=== PATIENT | male | born 1930 | race Caucasian/White ===

== ENCOUNTER 2019-05-19 | Emergency (ER) | payer MEDICARE ==
[2019-05-20 00:09] LABS: HEMOGLOBIN 13.6 g/dl (14.0-18.0); IMMATURE GRANULOCYTES 0.3 % (0.0-5.0); MEAN CELL VOLUME 97.2 fL CALC (80.0-100.0); MEAN CORPUSCULAR HGB 31.5 pG CALC (26.0-32.0); MEAN CORPUSCULAR HGB CONC 32.4 g/L CALC (32.0-36.0); NEUT# 4.23 thou/uL (1.82-7.42); RED BLOOD COUNT 4.32 mill/uL (4.70-6.10); RED CELL DISTRI WIDTH 12.9 % (11.5-15.5)
[2019-05-20 00:21] LABS: ALBUMIN 3.7 g/dL (3.2-5.0); ALKALINE PHOSPHATASE 52 u/l (38-126); ANION GAP 12 (6-22 (CALC)); BILIRUBIN, TOTAL 0.8 mg/dL (0.0-1.4); BUN 34 mg/dL (8-23); BUN/CREATININE RATIO 19 (12-20 (CALC)); CARBON DIOXIDE 25 mmol/l (22-30); CHLORIDE 106 mmol/l (95-108); CREATININE 1.8 mg/dL (0.7-1.3); GFR 36 ML/MIN (>=60 (CALC)); GFR FOR AFR.AMER. 44 ML/MIN (>=60 (CALC)); POTASSIUM 4.9 mmol/l (3.5-5.1); SGOT/AST 27 u/l (19-48); SODIUM 138 mmol/l (137-146); TOTAL PROTEIN 6.5 g/dL (6.3-8.2)
[2019-05-20 00:33] LABS: MYOGLOBIN 53 ng/mL (0 - 121)
[2019-05-20 00:46] LABS: URINE BILIRUBIN - DIPSTICK NEGATIVE (NEGATIVE); URINE BLOOD DIPSTICK NEGATIVE (NEGATIVE); URINE COLOR YELLOW; URINE GLUCOSE - DIPSTICK NEGATIVE (NEGATIVE); URINE KETONE NEGATIVE (NEGATIVE); URINE LEUK ESTERASE NEGATIVE (NEGATIVE); URINE NITRITE - DIPSTICK NEGATIVE (Negative); URINE PROTEIN - DIPSTICK TRACE mg/dL (NEG-TRACE)
== END 2019-05-20 01:37 | disposition home or self-care (01) ==
PROVIDERS: Emergency Medicine
DX: F03.90 Unspecified dementia, unspecified severity, without behavioral disturbance, psychotic disturbance, mood disturbance, and anxiety (principal); N28.9 Disorder of kidney and ureter, unspecified; I10 Essential (primary) hypertension; I48.91 Unspecified atrial fibrillation; I69.351 Hemiplegia and hemiparesis following cerebral infarction affecting right dominant side

== ENCOUNTER 2019-05-26 | Emergency (ER) | payer MEDICARE ==
[2019-05-26 09:17] LABS: HEMATOCRIT 44.1 % (39.0-50.0); HEMOGLOBIN 14.6 g/dl (14.0-18.0); IMMATURE GRANULOCYTES 0.2 % (0.0-5.0); MEAN CELL VOLUME 95.7 fL CALC (80.0-100.0); MEAN CORPUSCULAR HGB 31.7 pG CALC (26.0-32.0); MEAN CORPUSCULAR HGB CONC 33.1 g/L CALC (32.0-36.0); NEUT# 3.42 thou/uL (1.82-7.42); RED BLOOD COUNT 4.61 mill/uL (4.70-6.10); RED CELL DISTRI WIDTH 12.4 % (11.5-15.5)
[2019-05-26 09:30] LABS: ALKALINE PHOSPHATASE 69 u/l (38-126); ANION GAP 15 (6-22 (CALC)); BILIRUBIN, TOTAL 0.7 mg/dL (0.0-1.4); BUN 23 mg/dL (8-23); BUN/CREATININE RATIO 15 (12-20 (CALC)); CARBON DIOXIDE 27 mmol/l (22-30); CHLORIDE 102 mmol/l (95-108); CREATININE 1.5 mg/dL (0.7-1.3); GFR 44 ML/MIN (>=60 (CALC)); GFR FOR AFR.AMER. 54 ML/MIN (>=60 (CALC)); POTASSIUM 4.8 mmol/l (3.5-5.1); SGOT/AST 30 u/l (19-48); SODIUM 140 mmol/l (137-146)
[2019-05-26 09:32] LABS: PROTHROMBIN TIME 10.5 SECONDS (9.0-12.5)
[2019-05-26] MEDS ORDERED: FAMOTIDINE20 M1 PO (09:34)
[2019-05-26] MEDS ORDERED: LISINOPRIL5 MG PO (09:34)
[2019-05-26] MEDS ORDERED: METOPROL TAR25 MG PO (09:35)
[2019-05-26 09:41] LABS: MYOGLOBIN 59 ng/mL (0 - 121)
[2019-05-26 10:11] LABS: URINE BILIRUBIN - DIPSTICK NEGATIVE (NEGATIVE); URINE BLOOD DIPSTICK NEGATIVE (NEGATIVE); URINE COLOR YELLOW; URINE GLUCOSE - DIPSTICK NEGATIVE (NEGATIVE); URINE KETONE NEGATIVE (NEGATIVE); URINE LEUK ESTERASE NEGATIVE (NEGATIVE); URINE NITRITE - DIPSTICK NEGATIVE (Negative); URINE PH 6.5 (4.5-8.0); URINE PROTEIN - DIPSTICK 30 mg/dL (NEG-TRACE)
[2019-05-26 10:25] LABS: URINE SQUAMOUS EPITHELIAL CELL FEW EPI/hpf (0-FEW)
== END 2019-05-26 11:29 | disposition home or self-care (01) ==
PROVIDERS: Emergency Medicine
DX: R42 Dizziness and giddiness (principal); F03.90 Unspecified dementia, unspecified severity, without behavioral disturbance, psychotic disturbance, mood disturbance, and anxiety; I48.91 Unspecified atrial fibrillation; I12.9 Hypertensive chronic kidney disease with stage 1 through stage 4 chronic kidney disease, or unspecified chronic kidney disease; N18.9 Chronic kidney disease, unspecified; R53.1 Weakness; R47.01 Aphasia

== ENCOUNTER 2019-06-18 08:09 | Observation (INO) | payer MEDICARE, MEDICAID ==
[~2019-06-18] VITALS: Ht 170.2 cm; Wt 58.0 kg
[~2019-06-18 08:09] MED LIST: FAMOTIDINE20 M1 PO; LISINOPRIL5 MG PO; METOPROL TAR25 MG PO
--- NOTE | 2019-06-18 08:15 | NUR ---
PT TO ROOM VIA [facility] FOR BEDSIDE TRIAGE.
--- NOTE | 2019-06-18 08:30 | NUR ---
PT CHANGED TO GOWN. FAMILY MEMBER REPORTS INCREASED CONFUSION, FEES WARM, PRODUCTIVE COUGH, DECREASE APPETITE FOR TWO DAYS. BREATH SOUNDS DIMINISHED BILAT. NO CARDIAC COMPLAINTS. PT HARD OF HEARING. NO HEARING AID IN AT PRESENT. MONITORS APPLIED. SIDERAILS UP. FAMILY INSTRUCTED SUPERVISOR DOG LICENSE OFFICER RUCKER USE
[2019-06-18 08:51] LABS: HEMATOCRIT 48.2 % (39.0-50.0); HEMOGLOBIN 15.8 g/dl (14.0-18.0); IMMATURE GRANULOCYTES 0.4 % (0.0-5.0); MEAN CELL VOLUME 94.7 fL CALC (80.0-100.0); MEAN CORPUSCULAR HGB CONC 32.8 g/L CALC (32.0-36.0); NEUT# 3.79 thou/uL (1.82-7.42); RED BLOOD COUNT 5.09 mill/uL (4.70-6.10); RED CELL DISTRI WIDTH 12.4 % (11.5-15.5)
[2019-06-18 09:17] LABS: ALBUMIN 4.4 g/dL (3.2-5.0); ALKALINE PHOSPHATASE 69 u/l (38-126); ANION GAP 17 (6-22 (CALC)); BILIRUBIN, TOTAL 1.2 mg/dL (0.0-1.4); BUN 24 mg/dL (8-23); BUN/CREATININE RATIO 16 (12-20 (CALC)); CARBON DIOXIDE 24 mmol/l (22-30); CHLORIDE 98 mmol/l (95-108); CREATININE 1.5 mg/dL (0.7-1.3); GFR 44 ML/MIN (>=60 (CALC)); GFR FOR AFR.AMER. 54 ML/MIN (>=60 (CALC)); POTASSIUM 4.8 mmol/l (3.5-5.1); SGOT/AST 36 u/l (19-48); SODIUM 135 mmol/l (137-146); TOTAL PROTEIN 7.8 g/dL (6.3-8.2)
--- NOTE | 2019-06-18 09:30 | NUR ---
PT RESTING COMFORTABLY ON STRETCHER. FAMILY AT BEDSIDE. AWAITING LAB RESULTS
[2019-06-18 09:35] LABS: MYOGLOBIN 58 ng/mL (0 - 121)
--- NOTE | 2019-06-18 10:10 | NUR ---
ANTIBIOTICS STARTED. PT CONTINUES TO HAVE PRODUCTIVE COUGH. YELLOW SECRETIONS
--- NOTE | 2019-06-18 10:43 | NUR ---
REPORT GIVEN TO ROXANN RAMOS. MED SURG
--- NOTE | 2019-06-18 10:50 | NUR ---
Admission Note Report Given to: ROXANN RN Transported by: Wheelchair X Stretcher Transported with: X Nurse Transporter X Patent IV O2 X Wood Preserving Plant Laborer Location: ICU X MS2 TRANSPORTED WITHOUT INCIDENT
[2019-06-18 11:15] VITALS: BP 105/61
--- NOTE | 2019-06-18 11:50 | NUR ---
PT ARRIVED ON UNIT VIA STRETCHER TRANSPORTED BY ED STAFF, ALERT AND ORIENTED TO PERSON, DENIES PAIN AT THIS TIME, VERY MARY'S IGLOO, IV ABT INFUSING, COUGHING PERIODICALLY WITH PRODUCTIVE YELLOW THICK SPUTUM, ORIENTED TO ROOM AND CALL RUCKER, BED ALARM ON, WILL CONTINUE TO MONITOR.
[2019-06-18 15:20] VITALS: BP 133/91
[2019-06-18 18:36] VITALS: BP 109/60
--- NOTE | 2019-06-18 20:00 | NUR ---
PATIENT RESTING IN BED WITH EYES CLOSED-EASY TO AROUSE. PATIENT IS ORIENTED TO PERSON ONLY. CONFUSED TO TIME, PLACE. UNABLED TO STATE CORRECT BIRTHDATE. ATTEMPT TO ASSIST PATIENT WITH DINNER TRAY-ATE ONLY SMALL AMT OF DINNER. TELE MONITOR IN PLACE. SALINE LOCK TO RIGHT AC INTACT AND APPEARS HEALTHY AT THIS TIME. SAFETY PRECAUTIONS REINFORCED. CALL LIGHT IN REACH. WILL CONT TO MONITOR.
[2019-06-18 23:38] VITALS: BP 108/66
--- NOTE | 2019-06-19 | NUR ---
PATIENT RESTING IN BED-REMAINS CONFUSED BUT PLEASANT. IVF NS PATENT AND INFUSING VIA RIGHT AC SITE AT 100CC/HR. SITE REMAINS HEALTHY. VOIDING PEDRO URINE-URINE SPEC OBTAINED AND SENT TO LABS. TELE MONITOR IN PLACE. CALL LIGHT IN REACH.WILL CONT TO MONITOR.
[2019-06-19 00:50] LABS: URINE BILIRUBIN - DIPSTICK NEGATIVE (NEGATIVE); URINE BLOOD DIPSTICK TRACE-INTACT (NEGATIVE); URINE COLOR YELLOW; URINE GLUCOSE - DIPSTICK NEGATIVE (NEGATIVE); URINE KETONE NEGATIVE (NEGATIVE); URINE LEUK ESTERASE NEGATIVE (NEGATIVE); URINE NITRITE - DIPSTICK NEGATIVE (Negative); URINE PH 5.5 (4.5-8.0); URINE PROTEIN - DIPSTICK 100 mg/dL (NEG-TRACE); URINE SPECIFIC GRAVITY >=1.030
[2019-06-19 01:14] LABS: URINE WBC 0-2 WBC/hpf (0-5)
[2019-06-19 01:15] LABS: URINE BACTERIA RARE hpf; URINE EPITHELIAL CELLS FEW EPI/hpf (0-FEW)
[2019-06-19 03:35] VITALS: BP 116/72
--- NOTE | 2019-06-19 03:52 | NUR ---
PATIENT RESTING IN BED AT THIS TIME. TELE MONITOR IN PLACE. IVF NS PATENT AND INFUSING VIA RAC SITE AT 100CC/HR. SITE REMAINS HEALTHY AT THIS TIME. BED ALARM IN PLACE. CALL LIGHT IN REACH. WILL CONT TO MONITOR.
--- NOTE | 2019-06-19 07:00 | NUR ---
REPORT RECEIVED FROM RACHEL MARCH;PT RESTING IN SEMI FOWLERS POSITION;INTRODUCED SELF TO PT AND POC DISCUSSED;PT NOTED TO BE CONFUSED,BED ALARM TO REMAIN ON FOR PT SAFETY;IV FLUIDS INFUSING WITH EASE;TELE MONITORING IN PLACE;RESPIRATIONS EVEN AND UNLABORED ON RA;PT DENIES ANY ADDITIONAL NEEDS AT THIS TIME;ENCOURAGED TO CALL FOR ASSISTANCE IF NEEDED;FALL PRECAUTIONS IN PLACE WITH BED IN THE LOWEST POSITION AND CALL LIGHT IN REACH;WILL CONTINUE TO MONITOR
--- NOTE | 2019-06-19 09:10 | NUR ---
PT RESTING IN SEMI FOWLERS POSITION,ALERT TO SELF ONLY;VS OBTAINED AND ASSESSMENT COMPLETED;PT DENIES ANY CURRENT PAIN OR DISCOMFORTS,PAIN SCALE AND REPORTING EDUCATED;RESPIRATIONS EVEN AND UNLABORED ON RA;ABDOMEN SOFT ON PALPATION AND ACTIVE IN ALL 4 QUADRANTS;WEAK PEDAL PULSES;SKIN INTACT;TELE MONITORING IN PLACE;#20G TO RAC INFUSING NS @ 100ML/HR,SITE APPEARS HEALTHY;ABX HUNG AT THIS TIME;PT DENIES ANY ADDITONAL NEEDS AT THIS TIME AND IS ENCOURAGED TO CALL FOR ASSISTANCE IF NEEDED;FALL PRECAUTIONS REMAIN IN PLACE WITH BED IN THE LOWEST POSITION AND BED ALARM ON FOR SAFETY;CALL LIGHT IN REACH;WILL CONTINUE TO MONITOR
[2019-06-19 09:12] VITALS: BP 116/72
[2019-06-19 10:58] VITALS: BP 100/68
--- NOTE | 2019-06-19 11:20 | NUR ---
PT RESTING IN SEMI FOWLERS POSITION WITH FAMILY AT BEDSIDE;RESPIRATIONS EVEN AND UNLABORED ON RA;PT DENIES ANY CURRENT PAIN OR DISCOMFORTS;TELE MONITORING IN PLACE;IV SITE PATENT INFUSING NS WITH EASE PER ORDER,ABX ADMINISTERED AT THIS TIME;SPECIMEN CUP PROVIDED FOR SPUTUM SAMPLE;PT AND FAMILY DENY ANY ADDITIONAL NEEDS AND IS ENCOURAGED TO CALL FOR ASSISTANCE IF NEEDED;FALL PRECAUTIONS REMAIN IN PLACE WITH BED ALARM ON FOR SAFETY;CALL LIGHT IN REACH;WILL CONTINUE TO MONITOR
--- NOTE | 2019-06-19 13:46 | NUR ---
OT AT BEDSIDE WORKING WITH PATIENT.
[2019-06-19 14:40] VITALS: BP 111/67
--- NOTE | 2019-06-19 15:30 | NUR ---
PT APPEARS TO BE SLEEPING IN SEMI FOWLERS POSITION;NO S/S OF DISTRESS NOTED;RESPIRATIONS EVEN AND UNLABORED ON RA;TELE MONITORING IN PLACE;IV FLUIDS INFUSING WITH EASE TO RAC;ALL SAFETY PRECAUTIONS REMAIN IN PLACE WITH BED IN THE LOWEST POSITION AND BED ALARM ON FOR SAFETY;CALL LIGHT IN REACH;WILL CONTINUE TO MONITOR
[2019-06-19 19:28] VITALS: BP 139/84
--- NOTE | 2019-06-19 19:30 | NUR ---
PATIENT RESTING IN BED AT THIS TIME WITH HOB ELEVATED. AWAKE ALERT AND ORIENTED TO SELF ONLY. PLEASANT WITH TELE MONITOR IN PLACE. PATIENT WITH LOOSE PRODUCTIVE COUGH. IVF NS PATENT ANDINFUSING VIA RAC SITE AT 100CC/HR. SITE IS HEALTHY AT THIS ITME. BED ALARM IN PLACE FOR PATIENT SAFETY. CALL LIGHT IN REACH. MERISSA CONT TO MONITOR.
--- NOTE | 2019-06-19 23:56 | NUR ---
PATIENT APPEAR SLEEPING AT THIS TIME WITH HOB ELEVATED. EYES CLOSED. RESP ARE EVEN AND UNLABORED. IVF PATENT ANDINFUING VIA [facility] SITE. TELE MONITOR IN PLACE. CALL LIGHT IN REACH. BED ALARM IN PLACE FOR PATIENT SAFETY. WILL CONT TO MONITOR.
[2019-06-19 23:58] VITALS: BP 132/83
--- NOTE | 2019-06-20 04:03 | NUR ---
PATIENT RESTING IN BED WITH HOB ELEVATED AND EYES CLOSED. RESPS ARE EVEN AND UNLABORED. TELE MONITOR IN PLACE. IVF PATENT ANDINFUSING VIA RIGHT AC SITE. BED ALARM IN PLACE FOR PATIENT SAFETY. CALL LIGHT IN REACH. WILL CONT TO MONITOR.
[2019-06-20 04:10] VITALS: BP 128/78
[2019-06-20 06:41] LABS: HEMATOCRIT 42.4 % (39.0-50.0); IMMATURE GRANULOCYTES 0.3 % (0.0-5.0); MEAN CELL VOLUME 95.7 fL CALC (80.0-100.0); MEAN CORPUSCULAR HGB 30.9 pG CALC (26.0-32.0); MEAN CORPUSCULAR HGB CONC 32.3 g/L CALC (32.0-36.0); NEUT# 1.97 thou/uL (1.82-7.42); RED BLOOD COUNT 4.43 mill/uL (4.70-6.10); RED CELL DISTRI WIDTH 12.6 % (11.5-15.5)
--- NOTE | 2019-06-20 07:00 | NUR ---
SHIFT CHANGE REPORT, PT RESTING IN BED IN RIGHT SIDE-LYING POSITION, RESPONDS TO VERBAL STIMULI, TELE MONITOR IN PLACE, IVF INFUSING, BED IN LOWEWST POSITION AND CALL RUCKER IN REACH.
[2019-06-20 07:02] LABS: ANION GAP 12 (6-22 (CALC)); BUN 24 mg/dL (8-23); BUN/CREATININE RATIO 19 (12-20 (CALC)); CARBON DIOXIDE 24 mmol/l (22-30); CHLORIDE 106 mmol/l (95-108); CREATININE 1.3 mg/dL (0.7-1.3); GFR 52 ML/MIN (>=60 (CALC)); GFR FOR AFR.AMER. > 60 ML/MIN (>=60 (CALC)); MAGNESIUM 1.9 mg/dL (1.6-2.3); POTASSIUM 4.4 mmol/l (3.5-5.1); SODIUM 137 mmol/l (137-146)
[2019-06-20 07:27] LABS: HEMOGLOBIN 13.7 g/dl (14.0-18.0)
--- NOTE | 2019-06-20 08:00 | NUR ---
PT FOUND AMBULATING FROM BR TO BED WITH IV CATHETER DISLODGED AND BLOODY TRAIL ALL OVER ROOM, PT ASSISTED TO CHAIR AND SET UP FOR MEAL.
[2019-06-20 08:43] VITALS: BP 158/96
[2019-06-20 11:34] VITALS: BP 104/66
[2019-06-20] MEDS ORDERED: DOXYCYCL HYC100 MG PO (13:09)
[2019-06-20 16:00] VITALS: BP 104/64
--- NOTE | 2019-06-20 16:04 | NUR ---
PT WAS SEEN FOR GT. HE WAS INDEP ON SUPINE<>SIT AND SIT<>STAND WITH VERBAL CUES. HE WAS CONFUSED BUT ABLE TO FOLLOW INSTRUCTIONS. HE AMB IN THE HALLWAY X 100 X 2 FEET W/ RW AND SBA FROM THERAPIST. NO INSTABILITY NOTED. PT DISPLAYED KYPHOTIC POSTURE AND FAULTY USE OF RW. THERAPIST PROVIDED INSTRUCTIONS BUT PT WAS UNABLE TO CORRECT. HIS AMPAC SCORE REMAINS AT 18 POINTS. HE WILL BENEFIT FROM HOME HEALTH PHYS THERAPY FOR CONDITIONING.
--- NOTE | 2019-06-20 16:58 | NUR ---
Discharge instructions given. Patient verbalizes understanding of same. Discharged in stable condition via Wheelchair to Home with family. All belongings sent with pt.
== END 2019-06-20 16:56 | disposition home health service (06) | DRG 193 ==
LOC: ED 08:09 → ED-I 08:44 → ED 10:04 → MS2 10:05
PROVIDERS: Emergency Medicine; Nurse Practitioner Family; ADMIT Internal Medicine; ATTEND Internal Medicine
DX: J18.9 Pneumonia, unspecified organism (principal); G93.41 Metabolic encephalopathy; N17.9 Acute kidney failure, unspecified; F03.91 Unspecified dementia, unspecified severity, with behavioral disturbance; I69.951 Hemiplegia and hemiparesis following unspecified cerebrovascular disease affecting right dominant side; I12.9 Hypertensive chronic kidney disease with stage 1 through stage 4 chronic kidney disease, or unspecified chronic kidney disease; N18.9 Chronic kidney disease, unspecified; I48.91 Unspecified atrial fibrillation; H91.90 Unspecified hearing loss, unspecified ear; Z87.891 Personal history of nicotine dependence
CPT/HCPCS: G0378

== ENCOUNTER 2019-07-03 | Emergency (ER) | payer OTHER, MEDICARE, MEDICAID ==
[~2019-07-03] MED LIST changes: +DOXYCYCL HYC100 MG PO
[2019-07-03] MEDS ORDERED: ASPIRIN CHEWABL81 MG PO (22:54)
[2019-07-03] MEDS ORDERED: ATORVASTATIN CA40 MG PO (22:54)
[2019-07-03 23:42] LABS: HEMATOCRIT 40.7 % (39.0-50.0); HEMOGLOBIN 13.1 g/dl (14.0-18.0); IMMATURE GRANULOCYTES 0.2 % (0.0-5.0); MEAN CELL VOLUME 95.1 fL CALC (80.0-100.0); MEAN CORPUSCULAR HGB 30.6 pG CALC (26.0-32.0); MEAN CORPUSCULAR HGB CONC 32.2 g/L CALC (32.0-36.0); NEUT# 3.32 thou/uL (1.82-7.42); RED BLOOD COUNT 4.28 mill/uL (4.70-6.10); RED CELL DISTRI WIDTH 13.2 % (11.5-15.5)
[2019-07-03 23:57] LABS: ALBUMIN 3.7 g/dL (3.2-5.0); ALKALINE PHOSPHATASE 53 u/l (38-126); ANION GAP 11 (6-22 (CALC)); BUN 27 mg/dL (8-23); BUN/CREATININE RATIO 18 (12-20 (CALC)); CARBON DIOXIDE 26 mmol/l (22-30); CHLORIDE 104 mmol/l (95-108); CREATININE 1.5 mg/dL (0.7-1.3); GFR 44 ML/MIN (>=60 (CALC)); GFR FOR AFR.AMER. 54 ML/MIN (>=60 (CALC)); POTASSIUM 4.3 mmol/l (3.5-5.1); SGOT/AST 29 u/l (19-48); SODIUM 137 mmol/l (137-146); TOTAL PROTEIN 6.4 g/dL (6.3-8.2)
[2019-07-03 23:58] LABS: BILIRUBIN, TOTAL 0.7 mg/dL (0.0-1.4)
[2019-07-04 00:09] LABS: MYOGLOBIN 58 ng/mL (0 - 121)
[2019-07-04] MEDS ORDERED: ROBITUSSIN AC10 ML PO (00:34)
[2019-07-04] MEDS ORDERED: CEPHALEXIN500 MG PO (00:34)
== END 2019-07-04 00:45 | disposition home or self-care (01) | DRG 203 ==
PROVIDERS: Emergency Medicine
DX: J40 Bronchitis, not specified as acute or chronic (principal); I12.9 Hypertensive chronic kidney disease with stage 1 through stage 4 chronic kidney disease, or unspecified chronic kidney disease; N18.9 Chronic kidney disease, unspecified; I48.91 Unspecified atrial fibrillation; Z86.73 Personal history of transient ischemic attack (TIA), and cerebral infarction without residual deficits

== ENCOUNTER 2019-07-08 | Emergency (ER) | payer OTHER, MEDICARE, MEDICAID ==
[~2019-07-08] MED LIST changes: +ASPIRIN CHEWABL81 MG PO; +ATORVASTATIN CA40 MG PO; +CEPHALEXIN500 MG PO; +ROBITUSSIN AC10 ML PO
[2019-07-09 00:35] LABS: HEMATOCRIT 42.6 % (39.0-50.0); HEMOGLOBIN 14.1 g/dl (14.0-18.0); IMMATURE GRANULOCYTES 0.2 % (0.0-5.0); MEAN CORPUSCULAR HGB 31.1 pG CALC (26.0-32.0); MEAN CORPUSCULAR HGB CONC 33.1 g/L CALC (32.0-36.0); NEUT# 3.91 thou/uL (1.82-7.42); RED BLOOD COUNT 4.53 mill/uL (4.70-6.10); RED CELL DISTRI WIDTH 13.2 % (11.5-15.5)
[2019-07-09 00:46] LABS: ALKALINE PHOSPHATASE 55 u/l (38-126); ANION GAP 11 (6-22 (CALC)); BILIRUBIN, TOTAL 0.6 mg/dL (0.0-1.4); BUN 27 mg/dL (8-23); BUN/CREATININE RATIO 16 (12-20 (CALC)); CARBON DIOXIDE 26 mmol/l (22-30); CHLORIDE 105 mmol/l (95-108); CREATININE 1.6 mg/dL (0.7-1.3); GFR 41 ML/MIN (>=60 (CALC)); GFR FOR AFR.AMER. 50 ML/MIN (>=60 (CALC)); POTASSIUM 4.5 mmol/l (3.5-5.1); SGOT/AST 32 u/l (19-48); SODIUM 138 mmol/l (137-146)
[2019-07-09 01:00] LABS: MYOGLOBIN 61 ng/mL (0 - 121)
[2019-07-09 02:43] LABS: URINE BILIRUBIN - DIPSTICK NEGATIVE (NEGATIVE); URINE BLOOD DIPSTICK NEGATIVE (NEGATIVE); URINE COLOR YELLOW; URINE GLUCOSE - DIPSTICK NEGATIVE (NEGATIVE); URINE KETONE NEGATIVE (NEGATIVE); URINE LEUK ESTERASE NEGATIVE (NEGATIVE); URINE NITRITE - DIPSTICK NEGATIVE (Negative); URINE PROTEIN - DIPSTICK 30 mg/dL (NEG-TRACE); URINE SPECIFIC GRAVITY >=1.030; URINE UROBILINOGEN - DIPSTICK 0.2 E.U./dL (0.2)
[2019-07-09 02:46] LABS: URINE RBC 0-2 RBC/hpf (0-5); URINE WBC 0-2 WBC/hpf (0-5)
[2019-07-09] MEDS ORDERED: AMLODIPINE BESYL5 MG PO ×2 (02:53)
[2019-07-09] MEDS ORDERED: MIRALAX3350 N1 PO (22:52)
== END 2019-07-09 03:00 | disposition home or self-care (01) | DRG 884 ==
PROVIDERS: Family Medicine
DX: F03.90 Unspecified dementia, unspecified severity, without behavioral disturbance, psychotic disturbance, mood disturbance, and anxiety (principal); I12.9 Hypertensive chronic kidney disease with stage 1 through stage 4 chronic kidney disease, or unspecified chronic kidney disease; N18.9 Chronic kidney disease, unspecified; I48.91 Unspecified atrial fibrillation; Z86.73 Personal history of transient ischemic attack (TIA), and cerebral infarction without residual deficits

== ENCOUNTER 2019-07-09 | Emergency (ER) | payer OTHER, MEDICARE, MEDICAID ==
[2019-07-09] MEDS ORDERED: AMLODIPINE BESYL5 MG PO ×2 (02:53)
[2019-07-09 21:57] LABS: HEMOGLOBIN 13.5 g/dl (14.0-18.0); IMMATURE GRANULOCYTES 0.4 % (0.0-5.0); MEAN CELL VOLUME 93.8 fL CALC (80.0-100.0); MEAN CORPUSCULAR HGB 30.9 pG CALC (26.0-32.0); MEAN CORPUSCULAR HGB CONC 32.9 g/L CALC (32.0-36.0); NEUT# 3.21 thou/uL (1.82-7.42); RED BLOOD COUNT 4.37 mill/uL (4.70-6.10); RED CELL DISTRI WIDTH 13.1 % (11.5-15.5)
[2019-07-09 22:15] LABS: ALBUMIN 3.8 g/dL (3.2-5.0); ALKALINE PHOSPHATASE 56 u/l (38-126); AMYLASE 118 u/l (30-110); ANION GAP 11 (6-22 (CALC)); BILIRUBIN, TOTAL 0.7 mg/dL (0.0-1.4); BUN 26 mg/dL (8-23); BUN/CREATININE RATIO 17 (12-20 (CALC)); CARBON DIOXIDE 25 mmol/l (22-30); CHLORIDE 104 mmol/l (95-108); CREATININE 1.6 mg/dL (0.7-1.3); GFR 41 ML/MIN (>=60 (CALC)); GFR FOR AFR.AMER. 50 ML/MIN (>=60 (CALC)); LIPASE 274 u/l (23-300); POTASSIUM 4.4 mmol/l (3.5-5.1); SGOT/AST 31 u/l (19-48); SODIUM 136 mmol/l (137-146); TOTAL PROTEIN 6.6 g/dL (6.3-8.2)
[2019-07-09 22:27] LABS: MYOGLOBIN 51 ng/mL (0 - 121)
[2019-07-09] MEDS ORDERED: MIRALAX3350 N1 PO (22:52)
== END 2019-07-09 23:27 | disposition home or self-care (01) | DRG 392 ==
PROVIDERS: Emergency Medicine
DX: K59.00 Constipation, unspecified (principal); I12.9 Hypertensive chronic kidney disease with stage 1 through stage 4 chronic kidney disease, or unspecified chronic kidney disease; N18.9 Chronic kidney disease, unspecified; I48.91 Unspecified atrial fibrillation; Z86.73 Personal history of transient ischemic attack (TIA), and cerebral infarction without residual deficits

== ENCOUNTER 2019-07-10 | Emergency (ER) | payer OTHER, MEDICARE, MEDICAID ==
[~2019-07-10] MED LIST changes: +AMLODIPINE BESYL5 MG PO; +MIRALAX3350 N1 PO
== END 2019-07-10 15:15 | disposition home or self-care (01) | DRG 392 ==
DX: K59.00 Constipation, unspecified (principal); I12.9 Hypertensive chronic kidney disease with stage 1 through stage 4 chronic kidney disease, or unspecified chronic kidney disease; N18.9 Chronic kidney disease, unspecified

== ENCOUNTER 2019-07-12 18:53 | Inpatient (IN) | payer OTHER, MEDICARE, MEDICAID ==
[~2019-07-12] VITALS: Ht 172.7 cm; Wt 56.0 kg
[2019-07-12 21:47] LABS: URINE BILIRUBIN - DIPSTICK NEGATIVE (NEGATIVE); URINE BLOOD DIPSTICK NEGATIVE (NEGATIVE); URINE COLOR YELLOW; URINE GLUCOSE - DIPSTICK NEGATIVE (NEGATIVE); URINE KETONE NEGATIVE (NEGATIVE); URINE LEUK ESTERASE NEGATIVE (NEGATIVE); URINE NITRITE - DIPSTICK NEGATIVE (Negative); URINE PROTEIN - DIPSTICK NEGATIVE (NEG-TRACE); URINE UROBILINOGEN - DIPSTICK 0.2 E.U./dL (0.2)
[2019-07-12 21:48] LABS: HEMATOCRIT 42.6 % (39.0-50.0); HEMOGLOBIN 14.2 g/dl (14.0-18.0); IMMATURE GRANULOCYTES 0.3 % (0.0-5.0); MEAN CORPUSCULAR HGB 30.7 pG CALC (26.0-32.0); MEAN CORPUSCULAR HGB CONC 33.3 g/L CALC (32.0-36.0); NEUT# 5.24 thou/uL (1.82-7.42); RED BLOOD COUNT 4.63 mill/uL (4.70-6.10); RED CELL DISTRI WIDTH 13.4 % (11.5-15.5)
[2019-07-12 22:04] LABS: CREATININE 1.7 mg/dL (0.7-1.3); POTASSIUM 4.2 mmol/l (3.5-5.1); TOTAL PROTEIN 6.9 g/dL (6.3-8.2)
[2019-07-12 22:05] LABS: BILIRUBIN, TOTAL 1.3 mg/dL (0.0-1.4)
[2019-07-13 02:10] VITALS: BP 151/84
[2019-07-13 05:20] VITALS: BP 127/79
[2019-07-13 07:47] VITALS: BP 90/57
[2019-07-13 14:30] VITALS: BP 118/71
[2019-07-13 18:58] VITALS: BP 130/75
[2019-07-14 04:22] VITALS: BP 143/78
[2019-07-14 06:09] LABS: CREATININE 1.4 mg/dL (0.7-1.3); POTASSIUM 4.2 mmol/l (3.5-5.1)
[2019-07-14 07:56] VITALS: BP 132/76
[2019-07-14 15:15] VITALS: BP 136/78
[2019-07-14 19:14] VITALS: BP 138/92
[2019-07-15 04:22] VITALS: BP 122/76
[2019-07-15 07:20] VITALS: BP 136/82
[2019-07-15 08:42] VITALS: BP 136/82
== END 2019-07-15 13:03 | disposition home or self-care (01) | DRG 884 ==
LOC: ED 18:53 → ED-I 23:14 → ED 23:39 → MS2 23:40 → ED-I 23:40 → MS2 07-13 00:28
PROVIDERS: Emergency Medicine; ADMIT Internal Medicine; ATTEND Internal Medicine
DX: F03.91 Unspecified dementia, unspecified severity, with behavioral disturbance (principal); J44.1 Chronic obstructive pulmonary disease with (acute) exacerbation; I12.9 Hypertensive chronic kidney disease with stage 1 through stage 4 chronic kidney disease, or unspecified chronic kidney disease; N18.3 Chronic kidney disease, stage 3 (moderate); K21.9 Gastro-esophageal reflux disease without esophagitis; R00.1 Bradycardia, unspecified; K59.00 Constipation, unspecified; E78.5 Hyperlipidemia, unspecified; Z86.73 Personal history of transient ischemic attack (TIA), and cerebral infarction without residual deficits; Z87.891 Personal history of nicotine dependence; R06.02 Shortness of breath; F03.90 Unspecified dementia, unspecified severity, without behavioral disturbance, psychotic disturbance, mood disturbance, and anxiety; N18.9 Chronic kidney disease, unspecified; I48.91 Unspecified atrial fibrillation; R10.31 Right lower quadrant pain

== ENCOUNTER 2019-10-28 10:35 | Emergency (ER) | payer OTHER, MEDICARE, MEDICAID ==
[~2019-10-28] VITALS: Ht 172.7 cm; Wt 70.0 kg
[2019-10-28 11:05] LABS: HEMATOCRIT 40.4 % (39.0-50.0); HEMOGLOBIN 13.2 g/dl (14.0-18.0); IMMATURE GRANULOCYTES 0.2 % (0.0-5.0); MEAN CELL VOLUME 96.4 fL CALC (80.0-100.0); MEAN CORPUSCULAR HGB 31.5 pG CALC (26.0-32.0); MEAN CORPUSCULAR HGB CONC 32.7 g/dL CAL (32.0-36.0); NEUT# 3.31 thou/uL (1.82-7.42); RED BLOOD COUNT 4.19 mill/uL (4.70-6.10); RED CELL DISTRI WIDTH 13.8 % (11.5-15.5)
[2019-10-28 11:17] LABS: ALBUMIN 4.1 g/dL (3.2-5.0); ALKALINE PHOSPHATASE 56 u/l (38-126); AMYLASE 106 u/l (30-110); ANION GAP 11 (6-22 (CALC)); BILIRUBIN, TOTAL 0.9 mg/dL (0.0-1.4); BUN 24 mg/dL (8-23); BUN/CREATININE RATIO 16 (12-20 (CALC)); CARBON DIOXIDE 26 mmol/l (22-30); CHLORIDE 104 mmol/l (95-108); CREATININE 1.5 mg/dL (0.7-1.3); GFR 44 ML/MIN (>=60 (CALC)); GFR FOR AFR.AMER. 54 ML/MIN (>=60 (CALC)); LIPASE 224 u/l (23-300); POTASSIUM 4.5 mmol/l (3.5-5.1); SGOT/AST 37 u/l (19-48); SODIUM 137 mmol/l (137-146)
[2019-10-28 11:18] LABS: PROTHROMBIN TIME 10.7 SECONDS (9.0-12.5)
[2019-10-28 11:29] LABS: MYOGLOBIN 70 ng/mL (0 - 121)
[2019-10-28] MEDS ORDERED: AMLODIPINE BESYL5 MG PO (11:29)
[2019-10-28 11:56] LABS: URINE BILIRUBIN - DIPSTICK NEGATIVE (NEGATIVE); URINE BLOOD DIPSTICK NEGATIVE (NEGATIVE); URINE COLOR YELLOW; URINE GLUCOSE - DIPSTICK NEGATIVE (NEGATIVE); URINE KETONE NEGATIVE (NEGATIVE); URINE LEUK ESTERASE NEGATIVE (NEGATIVE); URINE NITRITE - DIPSTICK NEGATIVE (Negative); URINE PROTEIN - DIPSTICK TRACE mg/dL (NEG-TRACE); URINE SPECIFIC GRAVITY 1.015; URINE UROBILINOGEN - DIPSTICK 0.2 E.U./dL (0.2)
[2019-10-28 13:55] VITALS: BP 148/92
== END 2019-10-28 13:55 | disposition home or self-care (01) | DRG 948 ==
LOC: ED 10:35
PROVIDERS: Emergency Medicine
DX: R53.1 Weakness (principal); I12.9 Hypertensive chronic kidney disease with stage 1 through stage 4 chronic kidney disease, or unspecified chronic kidney disease; N18.9 Chronic kidney disease, unspecified; I48.91 Unspecified atrial fibrillation; F03.90 Unspecified dementia, unspecified severity, without behavioral disturbance, psychotic disturbance, mood disturbance, and anxiety; Z86.73 Personal history of transient ischemic attack (TIA), and cerebral infarction without residual deficits

== ENCOUNTER 2019-10-29 13:17 | Emergency (ER) | payer OTHER, MEDICARE, MEDICAID ==
[~2019-10-29] VITALS: Ht 172.7 cm; Wt 57.0 kg
[2019-10-29 17:04] LABS: HEMOGLOBIN 14.4 g/dl (14.0-18.0); IMMATURE GRANULOCYTES 0.4 % (0.0-5.0); MEAN CELL VOLUME 95.7 fL CALC (80.0-100.0); MEAN CORPUSCULAR HGB 31.3 pG CALC (26.0-32.0); MEAN CORPUSCULAR HGB CONC 32.7 g/dL CAL (32.0-36.0); NEUT# 2.97 thou/uL (1.82-7.42); RED BLOOD COUNT 4.6 mill/uL (4.70-6.10); RED CELL DISTRI WIDTH 13.6 % (11.5-15.5)
[2019-10-29 17:15] LABS: ALBUMIN 4.2 g/dL (3.2-5.0); BILIRUBIN, TOTAL 0.9 mg/dL (0.0-1.4); CREATININE 1.4 mg/dL (0.7-1.3); POTASSIUM 4.8 mmol/l (3.5-5.1); TOTAL PROTEIN 6.9 g/dL (6.3-8.2)
[2019-10-29 18:48] LABS: URINE BILIRUBIN - DIPSTICK NEGATIVE (NEGATIVE); URINE BLOOD DIPSTICK NEGATIVE (NEGATIVE); URINE COLOR YELLOW; URINE GLUCOSE - DIPSTICK NEGATIVE (NEGATIVE); URINE KETONE NEGATIVE (NEGATIVE); URINE LEUK ESTERASE NEGATIVE (NEGATIVE); URINE NITRITE - DIPSTICK NEGATIVE (Negative); URINE PROTEIN - DIPSTICK NEGATIVE (NEG-TRACE); URINE SPECIFIC GRAVITY 1.015; URINE UROBILINOGEN - DIPSTICK 0.2 E.U./dL (0.2)
[2019-10-29 21:08] VITALS: BP 166/73
== END 2019-10-29 21:01 | disposition home or self-care (01) | DRG 392 ==
LOC: ED 13:17
PROVIDERS: Emergency Medicine
DX: R10.84 Generalized abdominal pain (principal); I12.9 Hypertensive chronic kidney disease with stage 1 through stage 4 chronic kidney disease, or unspecified chronic kidney disease; N18.9 Chronic kidney disease, unspecified; I48.91 Unspecified atrial fibrillation; F03.90 Unspecified dementia, unspecified severity, without behavioral disturbance, psychotic disturbance, mood disturbance, and anxiety; Z90.49 Acquired absence of other specified parts of digestive tract; Z85.038 Personal history of other malignant neoplasm of large intestine; Z86.73 Personal history of transient ischemic attack (TIA), and cerebral infarction without residual deficits
CPT/HCPCS: Q9967

== ENCOUNTER 2019-11-04 18:07 | Observation (INO) | payer OTHER, MEDICARE, MEDICAID ==
[~2019-11-04] VITALS: Ht 172.7 cm; Wt 65.0 kg
--- NOTE | 2019-11-04 18:19 | NUR ---
PT ARRIVES WITH INITIAL COMPLAINT OF RIGHT SIDED CHEST PAIN AND NUMBNESS TO RIGHT ARM X 3 DAYS. AFTER A LONGER EVALUATION OF PT BY DR OCHOA HE STATES ' NUMBNESS STARTED 30 MINUTES PRIOR TO ARRIVAL. STROKE ALERT CALLED AT THIS TIME.
--- NOTE | 2019-11-04 18:26 | NUR ---
DAUGHTER AT BEDSIDE . SHE STATES " WHEN MY DAD WOKE UP THIS MORNING HE WAS ACTING CONFUSED" LAST KNOWN WELL TIME WAS 1999 LAST NIGHT.
[2019-11-04 18:29] LABS: HEMATOCRIT 40.7 % (39.0-50.0); HEMOGLOBIN 13.1 g/dl (14.0-18.0); IMMATURE GRANULOCYTES 0.2 % (0.0-5.0); MEAN CELL VOLUME 96.2 fL CALC (80.0-100.0); MEAN CORPUSCULAR HGB CONC 32.2 g/dL CAL (32.0-36.0); NEUT# 3.27 thou/uL (1.82-7.42); RED BLOOD COUNT 4.23 mill/uL (4.70-6.10); RED CELL DISTRI WIDTH 13.5 % (11.5-15.5)
[2019-11-04 18:44] LABS: ALBUMIN 4.1 g/dL (3.2-5.0); ALKALINE PHOSPHATASE 57 u/l (38-126); ANION GAP 10 (6-22 (CALC)); BILIRUBIN, TOTAL 0.8 mg/dL (0.0-1.4); BUN 28 mg/dL (8-23); BUN/CREATININE RATIO 19 (12-20 (CALC)); CARBON DIOXIDE 27 mmol/l (22-30); CHLORIDE 106 mmol/l (95-108); CREATININE 1.5 mg/dL (0.7-1.3); GFR 44 ML/MIN (>=60 (CALC)); GFR FOR AFR.AMER. 54 ML/MIN (>=60 (CALC)); POTASSIUM 4.4 mmol/l (3.5-5.1); SGOT/AST 31 u/l (19-48); SODIUM 138 mmol/l (137-146); TOTAL PROTEIN 6.7 g/dL (6.3-8.2)
--- NOTE | 2019-11-04 18:50 | NUR ---
REPORT GIVEN TO TANVI, RN
--- NOTE | 2019-11-04 19:17 | NUR ---
ADDENDUM-HEART RHYTHM IS A FIB
--- NOTE | 2019-11-04 19:17 | NUR ---
A/W/P/D SKIN SR NO ECTOPY DENIES PAIN ERICKA
[2019-11-04 19:33] LABS: PROTHROMBIN TIME 10.7 SECONDS (9.0-12.5)
--- NOTE | 2019-11-04 22:48 | NUR ---
AWAKENEND FROM QUIET SLEEP CONT AFIB.W/D SKIN.NO COUGH NO CONGESTION NO SOB
--- NOTE | 2019-11-04 23:31 | NUR ---
ASLEEP IN NAD
[2019-11-05] VITALS (8 sets, daily range): BP systolic 136–158; BP diastolic 78–90
[2019-11-05 06:19] LABS: HEMATOCRIT 38.2 % (39.0-50.0); HEMOGLOBIN 12.7 g/dl (14.0-18.0); IMMATURE GRANULOCYTES 0.3 % (0.0-5.0); MEAN CORPUSCULAR HGB 31.6 pG CALC (26.0-32.0); MEAN CORPUSCULAR HGB CONC 33.2 g/dL CAL (32.0-36.0); NEUT# 2.05 thou/uL (1.82-7.42); RED BLOOD COUNT 4.02 mill/uL (4.70-6.10); RED CELL DISTRI WIDTH 13.4 % (11.5-15.5)
[2019-11-05 06:40] LABS: ANION GAP 9 (6-22 (CALC)); BUN 25 mg/dL (8-23); BUN/CREATININE RATIO 19 (12-20 (CALC)); CARBON DIOXIDE 26 mmol/l (22-30); CHLORIDE 105 mmol/l (95-108); CREATININE 1.3 mg/dL (0.7-1.3); GFR 52 ML/MIN (>=60 (CALC)); GFR FOR AFR.AMER. > 60 ML/MIN (>=60 (CALC)); POTASSIUM 4.2 mmol/l (3.5-5.1); SODIUM 136 mmol/l (137-146)
--- NOTE | 2019-11-05 07:00 | NUR ---
ADMISSION ASSESSMENT COMPLETED BY PREVIOSU SHIFT.
--- NOTE | 2019-11-05 07:02 | NUR ---
PT REPORT TO KACY RAMOS-
--- NOTE | 2019-11-05 07:25 | NUR ---
PT RESTING OFFERS NO NEW COMPLAINTS, CALL RUCKER WITHIN REACH, AM ASSESSMENT COMPLETED, SET UP ASSIST PROVIDED FRO MEAL, WILL CONTINUE TO MONITOR,IV ACCESS ITNACT
--- NOTE | 2019-11-05 09:19 | NUR ---
PT RESTING NO COMPALINTS OFFERED, AWARE OF CONTIUNUED WAIT FOR BED IN MED SURG.
--- NOTE | 2019-11-05 11:00 | NUR ---
RECIEVED REPORT FROM KACY
--- NOTE | 2019-11-05 11:30 | NUR ---
PT SIGNED DISCHARGE PAPER WORK AND VERBALIZED UNDERSTANDING AFTER INSTRUCTIONS OMID. HIS DAUGHTER WAS CALLED AND SHE STATES IT WILL BE A "FEW" UNTIL HE IS ABLE TO BE PICKED UP. CLOTHING PLACED ON PT. BELONGINGS OMID. IV DC. PT IS RESTING IN BED UNTIL PICKUP.
--- NOTE | 2019-11-05 11:35 | NUR ---
PT ASSISTED OUT OF ER BY W/C AND DAUGHTER WAITING OUTSIDE. PT STABLE AND IN NO DISTRESS.
--- NOTE | 2019-11-05 11:37 | NUR ---
Discharge instructions given. Patient verbalizes understanding of same. Discharged in stable condition via Wheelchair to Home with family. All belongings sent with pt.
--- NOTE | 2019-11-05 19:57 | NUR ---
Patient is screened for PT intervention and it is not needed at this time
[2019-11-06] MEDS ORDERED: MIRALAX3350 N1 PO ×2 (15:13)
== END 2019-11-05 11:37 | disposition home health service (06) | DRG 313 ==
LOC: ED 18:07 → ED-I 19:34 → ED 19:44 → ED-I 19:45
PROVIDERS: Family Medicine; ADMIT Internal Medicine; ATTEND Internal Medicine
DX: R07.89 Other chest pain (principal); I69.398 Other sequelae of cerebral infarction; R20.2 Paresthesia of skin; I12.9 Hypertensive chronic kidney disease with stage 1 through stage 4 chronic kidney disease, or unspecified chronic kidney disease; N18.9 Chronic kidney disease, unspecified; I48.91 Unspecified atrial fibrillation; F03.90 Unspecified dementia, unspecified severity, without behavioral disturbance, psychotic disturbance, mood disturbance, and anxiety; Z79.82 Long term (current) use of aspirin; Z87.891 Personal history of nicotine dependence; Z20.828 Contact with and (suspected) exposure to other viral communicable diseases
CPT/HCPCS: J1650; Q9967

== ENCOUNTER 2019-11-05 12:07 | Emergency (ER) | payer OTHER, MEDICARE, MEDICAID ==
[~2019-11-05] VITALS: Ht 172.7 cm; Wt 68.2 kg
[2019-11-05 13:32] LABS: HEMATOCRIT 42.4 % (39.0-50.0); HEMOGLOBIN 13.9 g/dl (14.0-18.0); IMMATURE GRANULOCYTES 0.5 % (0.0-5.0); MEAN CELL VOLUME 95.3 fL CALC (80.0-100.0); MEAN CORPUSCULAR HGB 31.2 pG CALC (26.0-32.0); MEAN CORPUSCULAR HGB CONC 32.8 g/dL CAL (32.0-36.0); NEUT# 2.63 thou/uL (1.82-7.42); RED BLOOD COUNT 4.45 mill/uL (4.70-6.10); RED CELL DISTRI WIDTH 13.2 % (11.5-15.5)
[2019-11-05 14:18] LABS: ALBUMIN 4.3 g/dL (3.2-5.0); ALKALINE PHOSPHATASE 54 u/l (38-126); ANION GAP 11 (6-22 (CALC)); BILIRUBIN, TOTAL 0.9 mg/dL (0.0-1.4); BUN 26 mg/dL (8-23); BUN/CREATININE RATIO 22 (12-20 (CALC)); CARBON DIOXIDE 27 mmol/l (22-30); CHLORIDE 101 mmol/l (95-108); CREATININE 1.2 mg/dL (0.7-1.3); GFR 57 ML/MIN (>=60 (CALC)); GFR FOR AFR.AMER. > 60 ML/MIN (>=60 (CALC)); LIPASE 253 u/l (23-300); POTASSIUM 4.2 mmol/l (3.5-5.1); SGOT/AST 29 u/l (19-48); SODIUM 135 mmol/l (137-146); TOTAL PROTEIN 6.7 g/dL (6.3-8.2)
[2019-11-05 15:15] VITALS: BP 150/78
[2019-11-06] MEDS ORDERED: MIRALAX3350 N1 PO ×2 (15:13)
== END 2019-11-05 15:15 | disposition home or self-care (01) | DRG 392 ==
LOC: ED 12:07
PROVIDERS: Family Medicine
DX: K59.00 Constipation, unspecified (principal); I10 Essential (primary) hypertension; F03.90 Unspecified dementia, unspecified severity, without behavioral disturbance, psychotic disturbance, mood disturbance, and anxiety; Z86.73 Personal history of transient ischemic attack (TIA), and cerebral infarction without residual deficits

== ENCOUNTER 2019-11-06 09:33 | Emergency (ER) | payer OTHER, MEDICARE, MEDICAID ==
[~2019-11-06] VITALS: Ht 172.7 cm; Wt 55.0 kg
[2019-11-06 10:54] LABS: HEMATOCRIT 42.6 % (39.0-50.0); IMMATURE GRANULOCYTES 0.3 % (0.0-5.0); MEAN CELL VOLUME 95.3 fL CALC (80.0-100.0); MEAN CORPUSCULAR HGB 31.3 pG CALC (26.0-32.0); MEAN CORPUSCULAR HGB CONC 32.9 g/dL CAL (32.0-36.0); NEUT# 2.62 thou/uL (1.82-7.42); RED BLOOD COUNT 4.47 mill/uL (4.70-6.10); RED CELL DISTRI WIDTH 13.2 % (11.5-15.5)
[2019-11-06 11:15] LABS: ACT PARTIAL THROMBO TIME 25.6 SECONDS (20.0-32.5); PROTHROMBIN TIME 10.4 SECONDS (9.0-12.5)
[2019-11-06 11:21] LABS: ALBUMIN 3.9 g/dL (3.2-5.0); ALKALINE PHOSPHATASE 55 u/l (38-126); AMYLASE 91 u/l (30-110); ANION GAP 11 (6-22 (CALC)); BUN 24 mg/dL (8-23); BUN/CREATININE RATIO 16 (12-20 (CALC)); CARBON DIOXIDE 25 mmol/l (22-30); CHLORIDE 103 mmol/l (95-108); CREATININE 1.5 mg/dL (0.7-1.3); GFR 44 ML/MIN (>=60 (CALC)); GFR FOR AFR.AMER. 54 ML/MIN (>=60 (CALC)); LIPASE 356 u/l (23-300); POTASSIUM 4.3 mmol/l (3.5-5.1); SGOT/AST 28 u/l (19-48); SODIUM 135 mmol/l (137-146); TOTAL PROTEIN 6.5 g/dL (6.3-8.2)
[2019-11-06 13:28] LABS: URINE BILIRUBIN - DIPSTICK NEGATIVE (NEGATIVE); URINE BLOOD DIPSTICK NEGATIVE (NEGATIVE); URINE COLOR YELLOW; URINE GLUCOSE - DIPSTICK NEGATIVE (NEGATIVE); URINE KETONE NEGATIVE (NEGATIVE); URINE LEUK ESTERASE NEGATIVE (NEGATIVE); URINE NITRITE - DIPSTICK NEGATIVE (Negative); URINE PROTEIN - DIPSTICK NEGATIVE (NEG-TRACE); URINE SPECIFIC GRAVITY 1.015; URINE UROBILINOGEN - DIPSTICK 0.2 E.U./dL (0.2)
[2019-11-06] MEDS ORDERED: MIRALAX3350 N1 PO ×2 (15:13)
[2019-11-06 16:00] VITALS: BP 160/82
== END 2019-11-06 16:00 | disposition home or self-care (01) | DRG 392 ==
LOC: ED 09:33
DX: K59.00 Constipation, unspecified (principal); K64.9 Unspecified hemorrhoids; E86.0 Dehydration; N28.9 Disorder of kidney and ureter, unspecified; I10 Essential (primary) hypertension; I48.91 Unspecified atrial fibrillation; F03.90 Unspecified dementia, unspecified severity, without behavioral disturbance, psychotic disturbance, mood disturbance, and anxiety; Z86.73 Personal history of transient ischemic attack (TIA), and cerebral infarction without residual deficits; Z90.49 Acquired absence of other specified parts of digestive tract; Z85.038 Personal history of other malignant neoplasm of large intestine
CPT/HCPCS: Q9967

== ENCOUNTER 2019-11-07 22:38 | Emergency (ER) | payer MEDICARE, MEDICAID, OTHER ==
[~2019-11-07] VITALS: Ht 172.7 cm; Wt 50.0 kg
[2019-11-07 23:12] LABS: HEMATOCRIT 39.6 % (39.0-50.0); HEMOGLOBIN 12.9 g/dl (14.0-18.0); IMMATURE GRANULOCYTES 0.2 % (0.0-5.0); MEAN CELL VOLUME 95.9 fL CALC (80.0-100.0); MEAN CORPUSCULAR HGB 31.2 pG CALC (26.0-32.0); MEAN CORPUSCULAR HGB CONC 32.6 g/dL CAL (32.0-36.0); NEUT# 2.86 thou/uL (1.82-7.42); RED BLOOD COUNT 4.13 mill/uL (4.70-6.10); RED CELL DISTRI WIDTH 13.4 % (11.5-15.5)
[2019-11-07 23:25] LABS: URINE BILIRUBIN - DIPSTICK NEGATIVE (NEGATIVE); URINE BLOOD DIPSTICK NEGATIVE (NEGATIVE); URINE COLOR YELLOW; URINE GLUCOSE - DIPSTICK NEGATIVE (NEGATIVE); URINE KETONE NEGATIVE (NEGATIVE); URINE LEUK ESTERASE NEGATIVE (NEGATIVE); URINE NITRITE - DIPSTICK NEGATIVE (Negative); URINE PROTEIN - DIPSTICK NEGATIVE (NEG-TRACE); URINE SPECIFIC GRAVITY 1.015; URINE UROBILINOGEN - DIPSTICK 0.2 E.U./dL (0.2)
[2019-11-07 23:30] LABS: ALBUMIN 3.9 g/dL (3.2-5.0); ALKALINE PHOSPHATASE 52 u/l (38-126); AMYLASE 87 u/l (30-110); ANION GAP 9 (6-22 (CALC)); BILIRUBIN, TOTAL 0.6 mg/dL (0.0-1.4); BUN 23 mg/dL (8-23); BUN/CREATININE RATIO 15 (12-20 (CALC)); CARBON DIOXIDE 26 mmol/l (22-30); CHLORIDE 103 mmol/l (95-108); CREATININE 1.5 mg/dL (0.7-1.3); GFR 44 ML/MIN (>=60 (CALC)); GFR FOR AFR.AMER. 54 ML/MIN (>=60 (CALC)); LIPASE 476 u/l (23-300); MAGNESIUM 2.1 mg/dL (1.6-2.3); SGOT/AST 30 u/l (19-48); SODIUM 133 mmol/l (137-146); TOTAL PROTEIN 6.2 g/dL (6.3-8.2)
[2019-11-07 23:40] LABS: MYOGLOBIN 71 ng/mL (0 - 121)
[2019-11-07 23:53] LABS: POTASSIUM 5.2 mmol/l (3.5-5.1)
[2019-11-07 23:59] LABS: TSH, 3RD GENERATION 9.84 uIU/mL (0.47 - 4.68)
[2019-11-08] MEDS ORDERED: GOLYTEL1 PO ×2 (00:48)
[2019-11-08 00:49] VITALS: BP 147/87
== END 2019-11-08 00:49 | disposition home or self-care (01) | DRG 66 ==
LOC: ED 22:38
PROVIDERS: Family Medicine
DX: I63.9 Cerebral infarction, unspecified (principal); F03.90 Unspecified dementia, unspecified severity, without behavioral disturbance, psychotic disturbance, mood disturbance, and anxiety; K59.00 Constipation, unspecified; I10 Essential (primary) hypertension; I48.91 Unspecified atrial fibrillation; Z86.73 Personal history of transient ischemic attack (TIA), and cerebral infarction without residual deficits; Z85.038 Personal history of other malignant neoplasm of large intestine; Z90.49 Acquired absence of other specified parts of digestive tract; Z79.82 Long term (current) use of aspirin

== ENCOUNTER 2019-11-09 17:26 | Emergency (ER) | payer OTHER, MEDICARE, MEDICAID ==
[~2019-11-09] VITALS: Ht 172.7 cm; Wt 75.0 kg
[~2019-11-09 17:26] MED LIST changes: +GOLYTEL1 PO
[2019-11-09 18:38] LABS: HEMATOCRIT 43.2 % (39.0-50.0); HEMOGLOBIN 13.9 g/dl (14.0-18.0); IMMATURE GRANULOCYTES 0.2 % (0.0-5.0); MEAN CELL VOLUME 96.6 fL CALC (80.0-100.0); MEAN CORPUSCULAR HGB 31.1 pG CALC (26.0-32.0); MEAN CORPUSCULAR HGB CONC 32.2 g/dL CAL (32.0-36.0); NEUT# 2.95 thou/uL (1.82-7.42); RED BLOOD COUNT 4.47 mill/uL (4.70-6.10); RED CELL DISTRI WIDTH 13.2 % (11.5-15.5)
[2019-11-09 18:53] LABS: ALKALINE PHOSPHATASE 61 u/l (38-126); ANION GAP 13 (6-22 (CALC)); BUN 18 mg/dL (8-23); BUN/CREATININE RATIO 13 (12-20 (CALC)); CARBON DIOXIDE 25 mmol/l (22-30); CHLORIDE 102 mmol/l (95-108); CREATININE 1.4 mg/dL (0.7-1.3); GFR 48 ML/MIN (>=60 (CALC)); GFR FOR AFR.AMER. 58 ML/MIN (>=60 (CALC)); LIPASE 293 u/l (23-300); POTASSIUM 4.3 mmol/l (3.5-5.1); SGOT/AST 35 u/l (19-48); SODIUM 136 mmol/l (137-146); TOTAL PROTEIN 7.4 g/dL (6.3-8.2)
[2019-11-09 18:54] LABS: ALBUMIN 4.7 g/dL (3.2-5.0); BILIRUBIN, TOTAL 0.9 mg/dL (0.0-1.4)
[2019-11-09 20:14] VITALS: BP 152/88
[2019-11-09 20:23] LABS: URINE BILIRUBIN - DIPSTICK NEGATIVE (NEGATIVE); URINE BLOOD DIPSTICK NEGATIVE (NEGATIVE); URINE COLOR YELLOW; URINE GLUCOSE - DIPSTICK NEGATIVE (NEGATIVE); URINE KETONE NEGATIVE (NEGATIVE); URINE LEUK ESTERASE NEGATIVE (NEGATIVE); URINE NITRITE - DIPSTICK NEGATIVE (Negative); URINE PH 5.5 (4.5-8.0); URINE PROTEIN - DIPSTICK NEGATIVE (NEG-TRACE); URINE SPECIFIC GRAVITY <=1.005; URINE UROBILINOGEN - DIPSTICK 0.2 E.U./dL (0.2)
== END 2019-11-09 20:50 | disposition home or self-care (01) | DRG 392 ==
LOC: ED 17:26
PROVIDERS: Family Medicine
DX: K59.00 Constipation, unspecified (principal); F03.90 Unspecified dementia, unspecified severity, without behavioral disturbance, psychotic disturbance, mood disturbance, and anxiety; I10 Essential (primary) hypertension; I48.91 Unspecified atrial fibrillation; Z86.73 Personal history of transient ischemic attack (TIA), and cerebral infarction without residual deficits; Z85.038 Personal history of other malignant neoplasm of large intestine; Z90.49 Acquired absence of other specified parts of digestive tract

== ENCOUNTER 2019-11-12 08:29 | Emergency (ER) | payer OTHER, MEDICARE, MEDICAID ==
[~2019-11-12] VITALS: Ht 172.7 cm; Wt 58.0 kg
[2019-11-12 09:25] LABS: HEMATOCRIT 41.8 % (39.0-50.0); HEMOGLOBIN 13.7 g/dl (14.0-18.0); IMMATURE GRANULOCYTES 0.2 % (0.0-5.0); MEAN CELL VOLUME 95.9 fL CALC (80.0-100.0); MEAN CORPUSCULAR HGB 31.4 pG CALC (26.0-32.0); MEAN CORPUSCULAR HGB CONC 32.8 g/dL CAL (32.0-36.0); NEUT# 3.27 thou/uL (1.82-7.42); RED BLOOD COUNT 4.36 mill/uL (4.70-6.10); RED CELL DISTRI WIDTH 13.1 % (11.5-15.5)
[2019-11-12 09:40] LABS: ALBUMIN 4.2 g/dL (3.2-5.0); BILIRUBIN, TOTAL 1.1 mg/dL (0.0-1.4); CREATININE 1.4 mg/dL (0.7-1.3); POTASSIUM 4.5 mmol/l (3.5-5.1); TOTAL PROTEIN 6.6 g/dL (6.3-8.2)
[2019-11-12 10:30] VITALS: BP 143/93
== END 2019-11-12 10:42 | disposition home or self-care (01) | DRG 392 ==
LOC: ED 08:29
PROVIDERS: Emergency Medicine
DX: K59.00 Constipation, unspecified (principal); I10 Essential (primary) hypertension; I48.91 Unspecified atrial fibrillation; F03.90 Unspecified dementia, unspecified severity, without behavioral disturbance, psychotic disturbance, mood disturbance, and anxiety; Z86.73 Personal history of transient ischemic attack (TIA), and cerebral infarction without residual deficits; Z85.038 Personal history of other malignant neoplasm of large intestine; Z90.49 Acquired absence of other specified parts of digestive tract

== ENCOUNTER 2020-02-24 14:15 | Emergency (ER) | payer MEDICARE, MEDICAID ==
[~2020-02-24] VITALS: Ht 172.7 cm; Wt 56.0 kg
[2020-02-24 14:57] LABS: HEMATOCRIT 36.2 % (39.0-50.0); IMMATURE GRANULOCYTES 0.2 % (0.0-5.0); MEAN CELL VOLUME 97.8 fL CALC (80.0-100.0); MEAN CORPUSCULAR HGB 31.4 pG CALC (26.0-32.0); NEUT# 3.11 thou/uL (1.82-7.42); RED BLOOD COUNT 3.7 mill/uL (4.70-6.10); RED CELL DISTRI WIDTH 14.4 % (11.5-15.5)
[2020-02-24 15:00] LABS: HEMOGLOBIN 11.6 g/dl (14.0-18.0)
[2020-02-24 15:19] LABS: ALBUMIN 3.8 g/dL (3.2-5.0); ALKALINE PHOSPHATASE 56 u/l (38-126); ANION GAP 11 (6-22 (CALC)); BILIRUBIN, TOTAL 0.7 mg/dL (0.0-1.4); BUN 29 mg/dL (8-23); BUN/CREATININE RATIO 18 (12-20 (CALC)); CARBON DIOXIDE 24 mmol/l (22-30); CHLORIDE 105 mmol/l (95-108); CREATININE 1.6 mg/dL (0.7-1.3); GFR 41 ML/MIN (>=60 (CALC)); GFR FOR AFR.AMER. 50 ML/MIN (>=60 (CALC)); MAGNESIUM 1.9 mg/dL (1.6-2.3); POTASSIUM 4.6 mmol/l (3.5-5.1); SGOT/AST 29 u/l (19-48); SODIUM 136 mmol/l (137-146); TOTAL PROTEIN 6.2 g/dL (6.3-8.2)
[2020-02-24 16:00] LABS: URINE BILIRUBIN - DIPSTICK NEGATIVE (NEGATIVE); URINE BLOOD DIPSTICK NEGATIVE (NEGATIVE); URINE CLARITY CLEAR; URINE COLOR YELLOW; URINE GLUCOSE - DIPSTICK NEGATIVE (NEGATIVE); URINE KETONE NEGATIVE (NEGATIVE); URINE LEUK ESTERASE NEGATIVE (Negative); URINE NITRITE - DIPSTICK NEGATIVE (Negative); URINE PROTEIN - DIPSTICK TRACE mg/dL (NEG-TRACE)
[2020-02-24] MEDS ORDERED: ATIVAN0.5 MG PO (17:12)
[2020-02-24 17:50] VITALS: BP 162/78
== END 2020-02-24 17:50 | disposition home or self-care (01) ==
LOC: ED 14:15
DX: F03.91 Unspecified dementia, unspecified severity, with behavioral disturbance (principal); Z91.83 Wandering in diseases classified elsewhere; F41.9 Anxiety disorder, unspecified; I10 Essential (primary) hypertension; I48.91 Unspecified atrial fibrillation; Z86.73 Personal history of transient ischemic attack (TIA), and cerebral infarction without residual deficits; Z20.828 Contact with and (suspected) exposure to other viral communicable diseases
CPT/HCPCS: J2060

== ENCOUNTER 2020-07-20 15:40 | Observation (INO) | payer OTHER, MEDICARE, MEDICAID ==
[~2020-07-20] VITALS: Ht 172.7 cm; Wt 54.5 kg
[~2020-07-20 15:40] MED LIST changes: +ATIVAN0.5 MG PO
--- NOTE | 2020-07-20 15:40 | NUR ---
PT TO ROOM VIA EMS.
--- NOTE | 2020-07-20 16:20 | NUR ---
Reassessment of patient completed. No distress noted.
[2020-07-20 16:38] LABS: HEMOGLOBIN 11.9 g/dl (14.0-18.0); IMMATURE GRANULOCYTES 0.2 % (0.0-5.0); MEAN CELL VOLUME 99.2 fL CALC (80.0-100.0); MEAN CORPUSCULAR HGB 31.9 pG CALC (26.0-32.0); MEAN CORPUSCULAR HGB CONC 32.2 g/dL CAL (32.0-36.0); NEUT# 2.48 thou/uL (1.82-7.42); RED BLOOD COUNT 3.73 mill/uL (4.70-6.10); RED CELL DISTRI WIDTH 13.7 % (11.5-15.5)
[2020-07-20 16:58] LABS: ALBUMIN 3.7 g/dL (3.2-5.0); ALKALINE PHOSPHATASE 46 u/l (38-126); BUN 25 mg/dL (8-23); BUN/CREATININE RATIO 16 (12-20 (CALC)); CHLORIDE 102 mmol/l (95-108); CREATININE 1.6 mg/dL (0.7-1.3); GFR 41 ML/MIN (>=60 (CALC)); GFR FOR AFR.AMER. 50 ML/MIN (>=60 (CALC)); SGOT/AST 27 u/l (19-48); SODIUM 135 mmol/l (137-146); TOTAL PROTEIN 6.2 g/dL (6.3-8.2)
[2020-07-20 17:00] LABS: POTASSIUM 4.1 mmol/l (3.5-5.1)
[2020-07-20 17:01] LABS: ANION GAP 6 (6-22 (CALC)); CARBON DIOXIDE 31 mmol/l (22-30)
--- NOTE | 2020-07-20 17:37 | NUR ---
Reassessment of patient completed. No distress noted.
--- NOTE | 2020-07-20 18:47 | NUR ---
Reassessment of patient completed. No distress noted.
--- NOTE | 2020-07-20 19:32 | NUR ---
ATTEMPTED TO CALL REPORT THEY ARE NOT READY FOR THE PT.
[2020-07-20 19:53] LABS: URINE BILIRUBIN - DIPSTICK NEGATIVE (NEGATIVE); URINE BLOOD DIPSTICK NEGATIVE (NEGATIVE); URINE COLOR YELLOW; URINE GLUCOSE - DIPSTICK NEGATIVE (NEGATIVE); URINE KETONE NEGATIVE (NEGATIVE); URINE LEUK ESTERASE NEGATIVE (NEGATIVE); URINE NITRITE - DIPSTICK NEGATIVE (Negative); URINE PROTEIN - DIPSTICK NEGATIVE (NEG-TRACE); URINE SPECIFIC GRAVITY 1.015
[2020-07-20 19:55] VITALS: BP 172/96
--- NOTE | 2020-07-20 20:00 | NUR ---
REPORT CALLED TO UNRULY SUGGS PT TRANSPORTED IN THE BED TO ROOM IN STABLE CONSITION
--- NOTE | 2020-07-20 20:00 | NUR ---
Pt has dementia. he seems to be okay at this time. IV in left arm Normal saline running at 30ml/hr. unable to truly answer questions about past such as when flu/pneu vaccine was given. Pt is here due to daughter unable to take care of him. Dinner is given to him. Call light demo given.will continue to monitor
[2020-07-21] VITALS: BP 117/64
--- NOTE | 2020-07-21 | NUR ---
pt sleeping peacfully. fluids continue running. no complaint of pain. bed alarm active due to altered mental status. will continue to monitor
[2020-07-21 04:00] VITALS: BP 123/72
--- NOTE | 2020-07-21 07:09 | NUR ---
REPORT RECEIVED. PT RESTING IN BED ON RIGHT SIDE; ALERT AND ORIENTED TO PERSON AND PLACE; UNABLE TO STATE , YEAR, OR AGE; HARD OF HEARING. DENIES PAIN, SOB, AND COUGH. LUNGS ARE CLEAR; HEART RATE IRREGULAR. VSS. IV FLUIDS INFUSING AT AT 30ML/HR; 20G TO LAC. PLAN OF CARE REVIEWED; PT DISINTERESTED IN DISCUSSION AT THIS TIME. SAFETY MEASURES IN PLACE. CALL LIGHT WITHIN REACH.
[2020-07-21 07:17] VITALS: BP 130/80
--- NOTE | 2020-07-21 07:56 | NUR ---
SITTING UP HIGH FOWLERS IN BED EATING BREAKFAST. BED ALARM IN PLACE FOR SAFETY. PT IS COOPERATIVE; DOES NOT ATTEMPT TO GET OUT OF BED; FLAT AFFECT.
--- NOTE | 2020-07-21 08:15 | NUR ---
ASSISTED INTO SHOWER AND LINENES CHANGED.
--- NOTE | 2020-07-21 08:40 | NUR ---
LAB AT BEDSIDE; IV FLUIDS NOW INFUSING AT 100 ML/HR PER ORDER.
[2020-07-21] MEDS ORDERED: FUROSEMIDE20 MG PO (09:17)
--- NOTE | 2020-07-21 09:18 | NUR ---
SPEECH THERPAY AT BEDSIDE FOR EVAL. NEW DIET FOR SOFT WITH THIN LIQUIDS. PT ABLE TO TELL ST HIS NAME AND .
[2020-07-21 09:19] LABS: CREATININE 1.4 mg/dL (0.7-1.3); POTASSIUM 4.3 mmol/l (3.5-5.1)
[2020-07-21] MEDS ORDERED: OLANZAPINE2.5 MG PO (09:21)
--- NOTE | 2020-07-21 10:01 | NUR ---
DR. FRAUSTO AND CARLYN LUGO AT BEDSIDE.
--- NOTE | 2020-07-21 10:50 | NUR ---
DAUGHTER CALLED FOR UPDATE AND UPDATE ON HOME MEDICATIONS.
[2020-07-21] MEDS ORDERED: METOPROL TAR25 MG PO (11:10)
--- NOTE | 2020-07-21 12:52 | NUR ---
AMBULATED TO BATHROOM TO VOID 250ML CLEAR, YELLOW URINE. BACK TO BED SEMI FOWLERS.
--- NOTE | 2020-07-21 13:16 | NUR ---
PHYSICAL THERAPY AT BEDSIDE.
[2020-07-21 15:26] VITALS: BP 154/73
--- NOTE | 2020-07-21 17:47 | NUR ---
NEW IV SITE PLACED TO RFA DUE TO POSITIONAL SITE TO LAC AND PATIENT REQUEST. IV FLUIDS NOW INFUSING AT 70ML/HR INTO RFA. PT ALERT AND CONFUSION; SLIGHTLY AGITATED AT TIMES, BUT EASILY REDIRECTED. SAFETY MEASURES IN PLACE. CALL LIGHT WITHIN REACH.
--- NOTE | 2020-07-21 18:05 | NUR ---
UP TO BEDSIDE CHAIR; WARM BLANKET PROVIDED.
[2020-07-21 19:00] VITALS: BP 153/92
--- NOTE | 2020-07-21 19:30 | NUR ---
PT IN BED WITH EYES CLOSED. NO S/S OF DISTRESS OR DISCOMFORT. ABLE TO MAKE NEEDS KNOWN. RESPIRATION EVEN AND NON LABORED. CALL LIGHT IS WITHIN REACH AND BED IN LOW POSITION WELL BED ALARM ON DUE TO POOR SAFETY AWARENESS AND FALL PREVENTION. WILL CONTINUE TO OBSERVE
[2020-07-22 04:00] VITALS: BP 129/73
[2020-07-22 05:04] LABS: HEMATOCRIT 40.6 % (39.0-50.0); MEAN CELL VOLUME 98.1 fL CALC (80.0-100.0); MEAN CORPUSCULAR HGB 31.4 pG CALC (26.0-32.0); RED BLOOD COUNT 4.14 mill/uL (4.70-6.10); RED CELL DISTRI WIDTH 13.6 % (11.5-15.5)
[2020-07-22 05:21] LABS: CREATININE 1.4 mg/dL (0.7-1.3); MAGNESIUM 1.8 mg/dL (1.6-2.3); POTASSIUM 4.4 mmol/l (3.5-5.1)
--- NOTE | 2020-07-22 07:20 | NUR ---
REPORT RECEIVED FROM RACHEL BECERRA. PT RESTING IN BED SEMI FOWLERS; ALERT AND ORIENTED TO PERSON AND PLACE; OTHERWIFE CONFUSED AND FORGETFUL. DENIES PAIN. RESPIRATIONS EVEN AND UNLABORED ON ROOM AIR. COOPERATIVE. ASSISTED UP TO BSC PER REQUEST FOR BREAKTAST. POC REVIEWED; PT DISINTERESTED. SAFETY MEASURES IN PLACE. CALL LIGHT WITHIN REACH.
[2020-07-22 07:44] VITALS: BP 148/89
--- NOTE | 2020-07-22 08:54 | NUR ---
PHYSICAL THERAPY AT BEDSIDE.
--- NOTE | 2020-07-22 09:14 | NUR ---
Pt Note Patient was seated in chair as entered room, patient agreed to participate in therapy session. Hard of hearing so verbal commands were shouted for patient to understgand. Sit>stand(SBA), verbal cues for correct hand placement as patient ascended to a standing position. No loss of balance noted, no shortness of brrath or dizziness. Ambulated 35 ft x 4 w/ FWW, (SBA). Patient ambulated to bathroom, sit>stand(independent), correct use of hand placement as he descneded to a seated position. Sit>stand(independant), cues fopr correct hand placement. patient tended to want to use IV cart for walker not sure of what to use. Command for him to place upper extremities onto walker. Stand>sit(independant), controlled descent to chair. patient was seated in chair with tray table and call rosales by patient side as exited room. [facility] 14
--- NOTE | 2020-07-22 12:20 | NUR ---
SITTING UP EATING LUNCH. USES CALL LIGHT FOR ASSISTANCE; AMBULATES TO BATHROOM TO VOID. NO OTHER REQUESTS OR CONCERNS AT THIS TIME.
[2020-07-22] MEDS ORDERED: PEPCID20 MG PO (13:24)
--- NOTE | 2020-07-22 14:45 | NUR ---
ROOM ASSIGNMENT RECEIVED FROM CASE MANAGEMENT; PT UPDATED ON PLANNED DISCHARGE TO [facility] ROOM 107; STATES UNDERSTANDING.
[2020-07-22 14:54] VITALS: BP 127/79
--- NOTE | 2020-07-22 15:51 | NUR ---
IV site discontinued X 2, cath intact. No edema , no redness, voices no discomfort.
--- NOTE | 2020-07-22 16:04 | NUR ---
Discharge instructions given. Patient verbalizes understanding of same and daughter notified. [facility] [place] [facility]. All belongings sent with pt.
== END 2020-07-22 16:05 | DRG 71 ==
LOC: ED 15:40 → ED-I 16:28 → ED 18:13 → MS2 18:14
PROVIDERS: Nurse Practitioner; ADMIT Internal Medicine; ATTEND Internal Medicine
DX: G93.41 Metabolic encephalopathy (principal); F03.91 Unspecified dementia, unspecified severity, with behavioral disturbance; N17.9 Acute kidney failure, unspecified; I10 Essential (primary) hypertension; I48.91 Unspecified atrial fibrillation; Z91.83 Wandering in diseases classified elsewhere; Z74.09 Other reduced mobility; Z86.73 Personal history of transient ischemic attack (TIA), and cerebral infarction without residual deficits; Z85.038 Personal history of other malignant neoplasm of large intestine; Z20.822 Contact with and (suspected) exposure to COVID-19; Z85.46 Personal history of malignant neoplasm of prostate; Z87.891 Personal history of nicotine dependence